=== PATIENT | male | born 1955 | race Caucasian/White ===

== ENCOUNTER 2019-03-30 16:09 | Outpatient (CLI) | payer OTHER, SELFPAY ==
--- NOTE | 2019-03-30 15:00 | DI.RAD_ITS ---
SYMPTOM/DIAGNOSIS: RIGHT KNEE PAIN RIGHT KNEE: Comparison is made with 07 Jan 2017 A right knee prosthesis is noted. There is increased sclerosis of the medial aspect of the proximal tibial metadiaphysis. There is also a question of some lucency adjacent to the tibial portion of the tibial prosthesis which could indicate loosening. A joint effusion is seen. There is some fragmentation at the upper aspect of the patella which appears more prominent when compared with the previous exam. There is also a question of some increased separation of the anterior aspect of the femoral component with increased lucency seen between the femur and prosthesis. IMPRESSION: Joint effusion. Findings questioning loosening of both femoral and tibial components of the total knee prosthesis.
--- NOTE | 2019-03-30 15:34 | DI.RAD_ITS ---
SYMPTOM/DIAGNOSIS: LEFT FOOT PROMINENCE BY 5TH METATARSAL; PAIN LEFT FOOT: There are no prior comparison exams. There is a nonunited fracture of the 5th metatarsal. There is prominent callus formation and medial angulation. There are intertarsal and tarsal metatarsal degenerative changes. There is also deformity of the proximal phalanx of the 5th toe consistent with old healed fracture. IMPRESSION: 5th metatarsal fracture in the mid shaft with ventral angulation. There is adjacent soft tissue swelling. The fracture appears old and shows surrounding callus formation as well as incomplete union.
[2019-03-30 17:10] LABS: Clarity CLOUDY; Source R KNEE
[2019-03-30 17:11] LABS: Nucleated Cells 1793 /MM3 (0-0)
[2019-03-30 17:22] LABS: Mononuclear Cells 44 % (0-0); Polynuclear Cells 56 % (0-0)
== END 2019-03-30 16:29 ==
PROVIDERS: PCP Family Medicine; Visit Provider Student in an Organized Health Care Education/Training Program
DX: M79.672 Pain in left foot (principal); S92.352K Displaced fracture of fifth metatarsal bone, left foot, subsequent encounter for fracture with nonunion; M79.89 Other specified soft tissue disorders; M19.072 Primary osteoarthritis, left ankle and foot; M25.561 Pain in right knee; M25.461 Effusion, right knee; Z96.651 Presence of right artificial knee joint
CPT/HCPCS: 73562; 73630; 87070; 87205; 89051; 89060

== ENCOUNTER 2019-04-11 01:16 | Outpatient (CLI) | payer OTHER, SELFPAY ==
--- NOTE | 2019-04-11 09:28 | DI.CT_ITS ---
SYMPTOM/DIAGNOSIS: EVAL BONE STOCK AND LOOSENING AFTER TKA T84.032A RIGHT KNEE CT: 04/11 CT examination of the knee was performed according to the usual protocol. There is total knee joint replacement in position. There is a joint effusion. There is fragmentation of lateral aspect of the patella as noted on previous radiographs. Patellar implant appears fairly well seated. The tibial implant appears generally well seated with a couple small focal areas of adjacent lucency in the metaphysis measuring up to 2 mm in diameter The tibial component shows circumferential lucency measuring up to 5 mm. There is also significant geographic area of bony lucency involving anterior and medial aspects of the proximal tibia. CONCLUSION: The findings are suggestive of loosening of tibial component of the TKR. Please see above discussion.
--- NOTE | 2019-04-11 09:29 | DI.CT_ITS ---
SYMPTOM/DIAGNOSIS: EVAL FOR BONE UNION AND POSITION. FX 5TH METATARSAL LT FOOT S92.352P CT LEFT FOOT: 04/11 CT examination of the foot was performed utilizing multislice acquisition and multiplanar reconstruction. 5th metatarsal fracture shows bony bridging on its medial and lateral aspects. Incomplete bony bridging present on the dorsal and volar aspects of the healing fracture plane. No other fracture identified. Multiple cystic lesions appear to be present in the bones of the hind foot and fore foot. Mild DJD noted involving tibiotalar talonavicular and subtalar joints as well as the calcaneal cuboid joint. CONCLUSION: Bony bridging but incomplete healing of 5th metatarsal fracture.
== END 2019-04-11 01:36 ==
PROVIDERS: PCP Nurse Practitioner Family; Visit Provider Student in an Organized Health Care Education/Training Program
DX: T84.032A Mechanical loosening of internal right knee prosthetic joint, initial encounter (principal); M25.461 Effusion, right knee; S92.352P Displaced fracture of fifth metatarsal bone, left foot, subsequent encounter for fracture with malunion; M19.072 Primary osteoarthritis, left ankle and foot
CPT/HCPCS: 73700

== ENCOUNTER 2019-08-30 14:09 | Outpatient (CLI) | payer OTHER, SELFPAY ==
--- NOTE | 2019-08-30 15:02 | HPE_ITS ---
Date of service: 08/30/19 Assessment and Plan Assessment and plan (1) 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: Status: Acute Assessment and plan: Revision right total knee replacement. Details of surgery were discussed with patient as well as risks and pertinent anatomy. All questions were answered. Qualifiers: Encounter type: subsequent encounter Qualified Code(s): T84.032D - Mechanical loosening of internal right knee prosthetic joint, subsequent encounter History of Present Illness History of Present Illness Chief Complaint: Right total knee replacement pain Narrative: Joselito comes in today for a preop history and physical for a revision right total knee replacement. He states that he had a right total knee replacement done by Dr. Garcia about 3 years ago, and since then he has had some medial knee pain that radiates down into his reyes. Over time this pain continued to get worse, and actually bothers him when he is weightbearing or on his feet for long periods of time. Also bothers him when he gets up from a seated position to start walking. He eventually was evaluated by x-ray and CT scan which did confirm that he had loose tibial component, and also loosening of the femoral component. Due to this loosening he was worked up for infection and was found to have no infection in the knee, so this was determined to be aseptic loosening of the right total knee replacement. At this time Dr. Garcia offers a revision right total knee replacement, and Joselito is anxious to proceed. Pertinent Surgical Information Patient denies history of hypertension, CVA, HI, angina, asthma, COPD, renal or liver disorders, hepatitis, bleeding disorders, diabetes, immune or thyroid disorders. No complications from anesthesia. He does relate that he had some slight difficulty waking up from surgery and his previous total knee replacement. At that time they were unable to obtain a spinal anesthetic, but he would like to try for spinal anesthetic at this time as well. Review of Systems Constitutional Constitutional: Denies fever(s) ENT Ears, Nose, Mouth, and Throat: Denies dizziness and Denies sore throat Cardiovascular Cardiovascular: Denies chest pain, Denies palpitations and Denies dyspnea Respiratory Respiratory: Denies cough and Denies dyspnea Gastrointestinal Gastrointestinal: Denies abdominal pain, Denies melena, Denies hematochezia, Denies diarrhea, Denies nausea and Denies vomiting Genitourinary Genitourinary: Denies hematuria and Denies dysuria Neurologic Neurologic: Denies dizziness Endocrine Endocrine: Denies palpitations [facility] Medical History (Updated 08/30/19 @ 14:46 by Junior Suh) Allergic rhinitis Arthritis (Acute) Dislocation of right shoulder joint Fracture of metatarsal of left foot, closed (Acute) Unknown date/injury Surgical History (Updated 08/30/19 @ 15:05 by ANANDA Sheridan) History of broken finger (Acute) 1981, SCREWS, WIRES, AND METAL PLATE IN LEFT MIDDLE FINGER Status post total right knee replacement (Acute) Aspiration: 03/30/2019 DOS: December 2015 Social History Smoking/Tobacco Use Status: Never Alcohol Intake: never Drug use: Never Substance use type: does not use Current gender identity: male Do you feel safe at home: Yes Additional Social history: SPOUSE IN ROOM UNABLE TO OBTAIN Meds Home Medications and Allergies Home Medications Medication Instructions Recorded Confirmed Type No Home Medications 01/08/16 08/30/19 History Bone Stimulator #1 ea 04/28/19 08/30/19 Rx Allergies Allergy/AdvReac Type Severity Reaction Status Date / Time No Known Allergies Allergy Unverified 08/30/19 14:33 Exam [facility] Head: normocephalic and atraumatic General nose exam: no nasal discharge Throat: uvula midline and no uvular edema Other: soft palate rises symmetrically, no erythema Eyes Conjunctivae: conjunctivae normal Sclera: sclerae normal Pupils: PERRL Resp Effort & Inspection: normal respiratory effort Auscultation: clear to auscultation bilaterally and no wheezes Cardio Rate: regular rate Rhythm: regular rhythm Heart Sounds: S1 normal, S2 normal and no murmurs GI Palpation: soft, no hepatosplenomegaly and nontender Auscultation: normal bowel sounds
[2019-08-30 15:27] LABS: HCT 40.7 % (40.0-50.0); HGB 14.2 g/dL (13.5-17.5); Mean Corp. HGB Concentration 34.9 g/dL (32.0-36.0); Mean Corpuscular Hemoglobin 32.6 pg (27.0-33.0); Mean Corpuscular Volume 93.6 fL (80-95); Mean Platelet Volume 10.2 fL (8.0-11.0); Platelet Count 280 x1000/uL (130-400); RBC 4.35 m/cumm (4.50-6.00); RBC Distribution Width 12.2 % (11.8-14.1); White Blood Cell Count 8.07 k/cumm (4.4-10.8)
[2019-08-30 16:29] LABS: BUN 24 mg/dL (7-18); CREATININE 0.66 mg/dL (0.70-1.30); Calcium 9.2 mg/dL (8.5-10.1); Chloride 104 mmol/L (98-107); Glucose 89 mg/dL (74-106); Potassium 4.3 mmol/L (3.5-5.1); Sodium 141 mmol/L (136-145)
[2019-08-31 08:04] LABS: C-Reactive Protein 0.79 mg/dL (0.0-0.3)
[2019-08-31 10:53] LABS: Calculated LDL 170 mg/dL; Cholesterol 231 mg/dL (<200); HDL Cholesterol 44 mg/dL (40-60); Triglyceride 86 mg/dL (<150)
== END 2019-08-30 14:29 ==
PROVIDERS: PCP Nurse Practitioner Family; Visit Provider Student in an Organized Health Care Education/Training Program
DX: M25.561 Pain in right knee (principal); Z96.651 Presence of right artificial knee joint; T84.032A Mechanical loosening of internal right knee prosthetic joint, initial encounter; Z01.818 Encounter for other preprocedural examination; Z01.812 Encounter for preprocedural laboratory examination; Z13.220 Encounter for screening for lipoid disorders; Z13.228 Encounter for screening for other metabolic disorders
CPT/HCPCS: 36415; 80048; 80061; 85027; NC; 86140

== ENCOUNTER 2019-09-06 11:00 | Inpatient (IN) | payer OTHER, SELFPAY ==
[2019-08-30 13:22] VITALS: BP 160/80; PULSE 62; RESP 16; O2SAT 93
[2019-08-30 14:11] VITALS: BP 160/80; PULSE 62; RESP 16; O2SAT 93
[2019-09-06] VITALS (10 sets, daily range): BP systolic 96–146; BP diastolic 34–80; PULSE 48–57; RESP 11–19; TEMP 36.3–36.6; O2SAT 94–98
[2019-09-06] MEDS: Celecoxib 200 MG CAP 400 MG PO (11:42)
[2019-09-06] MEDS: Acetaminophen 500 MG TAB 1000 MG PO ×2 (11:43→20:13)
[2019-09-06] MEDS: Gabapentin 300 MG CAP PO ×2 (11:44→22:19)
[2019-09-06] MEDS: Lactated Ringers 1,000 ML 80 ML IV ×3 (12:08→18:43)
[2019-09-06] MEDS: Bupivacaine 0.25% Pres-Free 30 ML VIAL ×2 (12:21→13:31)
[2019-09-06] MEDS: ceFAZolin 2 GM/50 ML BAG IVPB (12:39)
--- NOTE | 2019-09-06 13:24 | SYNOVIUM_PTH ---
PATIENT: Joselito Molina LOC: [id number]#:[id number] AGE/SX: 63/M ROOM: RE09/06/[address]: Haile Garcia MD : [id number] BED: A DIS: 09/07/2019 SPEC #: [id number] RECD: 09/06/19 18:22 STATUS: LEORA REQ #: [id number] FINA: 09/06/19 13:[address]: Haile Garcia DEPT: Surgical Specimen RECD BY: Giulia Cummings ENTERED: 09/06/19 18:23 SP TYPE: SYNOVIUM OTHR DR: Alcira Villatoro Tissues: 1 - SYNOVIUM/IAL Procedures: GROSS AND MICRO LEVEL 4 Comments: [id number]
[2019-09-06] MEDS: Ketorolac 30 MG/ML VIAL (13:31)
[2019-09-06] MEDS: Normal Saline 20 ML VIAL (13:32)
[2019-09-06] MEDS: ceFAZolin 1 GM/50 ML BAG IVPB (18:42)
[2019-09-06] MEDS: Celecoxib 200 MG CAP PO (20:13)
[2019-09-06] MEDS: Aspirin E.C. 81 MG TABEC PO (20:13)
--- NOTE | 2019-09-06 20:20 | W.PM.OP ---
Date of service: 09/06/19 Time of Service: 17:02 Operative Note Operative Note DATE OF PROCEDURE: 09/06/19 PRE-OP DIAGNOSIS: Right Knee Replacement Loosening POST-OP DIAGNOSIS: same PROCEDURE: Right Revision Total Knee Replacement SURGEON: Haile Garcia [employer] ATTENDANT: Stefano Marquez ANESTHESIA: GETA, regional and spinal ESTIMATED BLOOD LOSS: 750 PATHOLOGY: none sent TOURNIQUET TIME: 122 COMPLICATIONS: None Patient was transported to: PACU Patient's condition: stable Implants: 1. Depuy Attune Revision Posterior Stabilized Femoral Component, Size 7 - [id number] cementless stem - 30mm cementless sleeve - 4mm medial, distal augment - 4mm medial and lateral posterior augment 2. Depuy Attune Fixed Platform Tibial Component, Size 6 - [id number] cementless stem - 29mm cementless sleeve 3. Depuy Attune 7x10mm Rotating Platform, Stabilized Plus Poly Indications: I have seen Kendrick in clinic for symptoms of RIGHT knee pain after a knee replacement in December 2015. X-rays showed global loosening of the tibia and femur. He has had increasing pain and with the radiographinc findings, I recommended revision surgery. An infection work up was completed with a mildly elevated CRP but negative Synovasure and 1793 cells with 56% PMN - thus negative. I discussed the technical details of a revision knee replacement. I explained the risks of the procedure to include, but not limited to, bleeding, infection, pain, stiffness, fracture, damage to nerves and vessels, damage to muscles and tendons, loosening, need for repeat procedure, blood clot, cardiopulmonary demise. Despite these risks, Kendrick elected to proceed. Findings: There was notable synovitis throughout the knee. Some areas were inflamed and others were simply hypertrophic with a villonodular appearance. There is no gross purulence but there was significant synovitis throughout. The components of the femur and the tibia were grossly loose and with minimal effort from the underlying cement. Likewise the cement was easily removed and large pieces from both the tibia and the femur. Surrounding the cement there was some loss of bone with a fibrous type material in its place. Multiple cultures were sent from the synovium and swabs within the knee. A large synovial sample was sent to pathology. After thorough irrigation, synovectomy, and remove any fibrous material, revision knee arthroplasty was placed. Procedure Description: Kendrick was greeted in the preoperative holding area where the correct side was identified and marked. The consent was reviewed with the patient and signed. The history and physical was updated. All questions were answered. Preoperative mediacations were administered: Acetaminophen 1000mg, Celebrex 400mg, and Gabapentin 300mg. An adductor canal block was then administered by the anesthesia team in the PACU. Kendrick was taken back to the operating room. A spinal anesthestic was then administered. The patient was placed into the supine position on the operating room table. A nonsterile tourniquet was placed high onto the leg but only used for cementing. Posts were placed for positioning during the procedure. All bony prominences were well padded. Prophylactic antibiotics in the form of cefazolin were administered. 1g of Tranxemic Acid was given intravenously within 30 minutes of incision. The right leg was then prepped with Chloraprep and draped in a standard fashion with impervious stockinette. A second prep with Chloraprep was performed prior to application of Iodine impregnated skin protection. A timeout to confirm correct identity, side and site, procedure, allergies, anesthesia, and medical concerns was performed. With the knee in some flexion, a midline incision was made overlying the knee, extending the previous incision by 2 cm in either direction.. Full thickness skin flaps were raised once the extensor mechanism was encountered. These were raised medially and laterally. Any bleeding was controlled with electrocautery. Once the extensor mechanism was fully exposed, a medial parapatellar arthrotomy was performed in a flexed position. There was significant synovial fluid encountered but no purulence and the fluid was normal in character. All bleeding from the arthrotomy and the geniculate arteries was coagulated. There was large amounts of synovitis seen immediately with some appearing very villonodular. A complete synovectomy was performed starting medial separate the overlying capsule from the synovium. This was inspected in a hole over the medial aspect. This synovium was then sent pathology. The remainder of the synovium within the knee working along the femur, lateral, anteriorly, and later posteriorly, was resected. Multiple synovial samples were sent for culture. The polyethylene was removed. Samples of the film underneath the polyethylene was sent for culture. Excess synovium was removed to allow for mobilization. The parapatellar arthrotomy was continued more proximally to allow more mobilization. The patella was unable to be everted and therefore was simply moved to the side. A subperiosteal peel was performed and this was continued along the entire medial aspect of the tibia until I was able to sublux the tibia forward. The posterior synovium was resected and scars and adhesions over the posterior tibia were released. This was also done for the posterior femur. The femur appeared grossly loose and with a few small taps with the bone tamp, the femoral component was easily removed. No cement came along with the femur. There also appear to be some loosening of the cement. With very minimal effort I was able to remove all the cement from the femur. Little bone came with the cement. There was a fibrous material seen around the cement and underneath it. This is removed with a rondure your. Any cystic areas were debrided with a curette. Attention was then turned to the tibia. Once again, this appeared loose. I placed the osteotome underneath the tibial plate with minimal difficulty and was able to remove it without difficulty. Once again, no cement came with a tibial component. Just like the femur, there was some soft tissue seen around the cement. The majority of the cement was able be removed with minimal effort or difficulty. Once all the cement components removed, using osteotomes and rongeurs, I debrided the tibial surface with a rondure and with a curette. A pulse lavage was then used to clean all the tibia and fibular surfaces. The patella was also inspected and it did not show any signs of loosening. Preparation of the tibia was next. Starting with the intramedullary reamer I began reaming up to a size 14 mm. Using a broach I began broaching for the 29 mm sleeve. An opening reamer was also used. The bone quality, while poor right around the cement, was actually quite good just beyond this and if anything sclerotic down in the metaphysis. The broach was sunk so it was a millimeter below the surface of the tibia. With the broach in position, I uses as a cutting guide was able to cut the tibial surface. There was some focus of bone loss right around the keel. However they were all contained with a nice rim of tibial bone and the broach had excellent fixation. The broach was removed and a trial component was placed. Attention was then turned to the femur. The intramedullary space was reamed with a desulfurizer hand up to size 16 mm. The area was opened up with the reamer for the sleeve. It was then broached to a 30 mm sleeve. The sleeve was left in place in the distal femoral cut was freshened. The size 7 guide was positioned. Flexion gap was established at 10 mm and this helps at rotation. This was also confirmed in extension where 10 mm provided excellent stability. The guide was pinned. There was little bone in the posterior femur and therefore four millimeter augments would be used and the posterior femoral condyles were cut accordingly. The anterior and posterior chamfers were cut and the catheter guide was in place. Due to limited contact over the medial, distal femur plan for a 4 mm augment and then this was cut accordingly. All trial components were placed and trialed. There is excellent stability and good patellar tracking. The trial component removed making sure to maintain rotational alignment between the parts. Aggressive irrigation and debridement was once again performed all the services to make sure no redness soft tissue was left behind. The knee was also irrigated with Irricept chlorhexidine solution. On the back table, the components were assembled. Once they were all assembled the cement was mixed. 2 batches of medium viscosity cement were mixed on the back table. Cement was placed over the tibial tray and the posterior femoral condyles. Cement was then impacted manually into the tibial cut surface trying to keep as much cement as possible out of the canal itself. The tibial component was then impacted in place. During the impaction process the tibial component was not willing to seat. I used a bone tamp to help improve rotation and then continue with impaction getting it down to 1 to 2 mm off of the tibia surface. I excepted this positioning as it was quite close and not worth trying to remove. Cement was then placed on the femoral cut surfaces and impacted manually. The femoral component was impacted and came down on the proper positioning. A size 7 x 10 mm polyethylene was placed and the knee is brought into extension where it stayed for the entire time for cement to cure. While this was setting, the soft tissue the knee was injected with a periarticular cocktail consisting of 50 cc of 0.25% bupivacaine, 20 cc of Exparel, 50 cc of expandable saline, and 30 mg of ketorolac. The tourniquet was then deflated. There is no major bleeding. The knee was taken through range of motion and was stable to varus and valgus stress in both extension and flexion and was able to achieve full extension. The trial polyethylene was then removed and excess cement was resected from within the knee and around the implants. A size 7 x 10 mm rotating platform, stabilized plus tibial implant was then inserted. Once again, the knee was irrigated with normal saline and with the Irrisept chlorhexidine solution. The capsule was then reapproximated with a No. 1 Vicryl at multiple locations. The capsule was finally closed with a No. 2 Stratafix, barbed suture. The tourniquet was then released and the arthrotomy appeared watertight without significant bleeding. The second dosing of 1g TXA was started. Deep tissues were then reapproximated with 0 Vicryl and 2-0 Vicryl. The skin was closed with a running 3-0 Monocryl in a subcuticular fashion. This was reinforced with skin glue. A Mepilex silver dressing was applied along with a [id number] PEG wrap. A CryoCuff was applied. Kendrick was transferred to the hospital bed without difficulty an suffering no apparent complication. The spinal anesthetic was converted to a general anesthetic given the duration of the surgery. He tolerated this well. He has a good prognosis. I will follow the culture and pathology results although initial Gram stain's at the end the case were negative. Physical therapy will start today and without restrictions, weight-bearing as tolerated. Aspirin 81mg BID will be used for DVT prophylaxis.
[2019-09-07] MEDS: ceFAZolin 1 GM/50 ML BAG IVPB ×2 (02:18→10:50)
[2019-09-07 02:20] VITALS: BP 97/55; PULSE 52
[2019-09-07 05:10] VITALS: BP 111/62; PULSE 53; RESP 16; TEMP 36.6; O2SAT 99
[2019-09-07] MEDS: Normal Saline 1,000 ML 1000 ML IV (07:01)
[2019-09-07] MEDS: Normal Saline Flush 10 ML SYR IV (07:17)
[2019-09-07 07:23] VITALS: BP 125/75; PULSE 53; RESP 17; TEMP 36.1; O2SAT 98
[2019-09-07 07:24] LABS: HCT 33.9 % (40.0-50.0); HGB 11.8 g/dL (13.5-17.5); Mean Corp. HGB Concentration 34.8 g/dL (32.0-36.0); Mean Corpuscular Hemoglobin 32.8 pg (27.0-33.0); Mean Corpuscular Volume 94.2 fL (80-95); Mean Platelet Volume 10.7 fL (8.0-11.0); Platelet Count 220 x1000/uL (130-400); RBC Distribution Width 12.1 % (11.8-14.1)
[2019-09-07 07:31] LABS: Anion Gap 8.3 mmol/L (3-11); BUN 17 mg/dL (7-18); CO2 26.7 mmol/L (21.0-32.0); CREATININE 0.74 mg/dL (0.70-1.30); Calcium 8.4 mg/dL (8.5-10.1); Chloride 106 mmol/L (98-107); Glucose 103 mg/dL (74-106); Potassium 4.1 mmol/L (3.5-5.1); Sodium 141 mmol/L (136-145)
[2019-09-07] MEDS: Acetaminophen 500 MG TAB 1000 MG PO (08:22)
[2019-09-07] MEDS: Celecoxib 200 MG CAP PO (08:22)
[2019-09-07] MEDS: Pantoprazole 40 MG TABCR PO (08:23)
[2019-09-07] MEDS: Aspirin E.C. 81 MG TABEC PO (08:23)
--- NOTE | 2019-09-07 10:01 | INITIAL_ITS ---
- If Service Date Differs Date of service: 09/07/19 Time of Service: 10:01 Care Management Initial Assess REASON FOR HOSPITALIZATION:: Right knee replacement loosening. PAST MEDICAL HISTORY/PAST SURGICAL HISTORY:: Medical history: Allergic rhinitis, arthritis, dislocation of right shoulder joint, and fracture of metatarsal of left foot, closed. Surgical history: History of broken finger and status post total right knee replacement. PREVIOUS FUNCTIONAL STATUS/SOCIAL/FAMILY SUPPORTS:: Joselito lives in [place] with his , Nikky. The couple has three adult children; one who lives locally. For the past 16 years, Joselito has worked full-time at [employer] When not at work, Joselito enjoys gardening and outdoor activities such as fishing, etc. Joselito drives and is independent with his ADLs at baseline. CURRENT FUNCTIONAL STATUS:: Joselito is sitting in a chair watching television when CM comes to meet with him. He states he is feeling good and hopes to go home today. He reports he is meeting with physical therapy at some point today and if that goes well, he likely will be discharged home this afternoon. ADVANCE DIRECTIVES:: None on file. Has patient been provided with information about the portal?: Yes Did the patient sign up for the portal?: No (Not interested.) CODE STATUS:: Full Code INSURANCE COVERAGE / FINANCIAL ISSUES:: Health Plans. CURRENT HOME/COMMUNITY SERVICES/EQUIPMENT:: Joselito has a FWW and crutches at home He has no in-home or community services. PRIMARY CARE PHYSICIAN:: ISABELLA Holt ([facility]) POTENTIAL DISCHARGE NEEDS:: Follow up appointments with Dr. Garcia, surgeon, and with primary care physician. PATIENT/FAMILY EDUCATION NEEDS:: Discharge plan, limitations, follow-up plan of care, including Ask Me Three and self-management. ANTICIPATED BARRIERS TO DISCHARGE:: No anticipated barriers at this time. TRANSPORTATION:: His , Nikky, will transport him home via private vehicle when ready. PLAN:: Joselito will be discharged home when medically cleared by provider. Anticipate no new services at time of discharge. Joselito will need outpatient follow-up appointments with Dr. Garcia and his primary care physician. His will transport him home via private vehicle when ready. CM will continue to follow.
--- NOTE | 2019-09-07 10:14 | W.PM.DS.N ---
Date of service: 09/07/19 Time of Service: 10:14 DS: Diagnosis Discharge Diagnosis (1) 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: Status: Acute Discharge Plan Disposition Patient Disposition: HOME Condition: Good Discharge Details Reason For Visit: R TKA LOOSENING Admit Date/Time: 09/06/19 11:00 Admit Provider: Haile Garcia Attending Provider: Haile Garcia Primary Care Provider: Alcira Villatoro Hospital Course Hospital Course: Patient was admitted to the medical/surgical floor following the procedure. It was tolerated well without any notable medical, surgical, or anesthetic complications. Mobilization began postoperatively. The hall catheter was removed and voiding spontaneously. Vitals were stable. Physical therapy worked with the patient and was cleared for discharge home. No acute medical issues. Home Meds and New Rx's Prescriptions: New celecoxib 200 mg capsule 200 mg PO BID PRN (Reason: pain) Qty: 60 RF: 1 aspirin 81 mg tablet,delayed release (DR/EC) 81 mg PO BID Qty: 60 RF: 0 acetaminophen 500 mg tablet 1,000 mg PO Q8H PRN (Reason: pain) Qty: 90 RF: 3 pantoprazole 40 mg tablet,delayed release (DR/EC) 40 mg PO DAILY Qty: 30 RF: 0 gabapentin 300 mg capsule 300 mg PO QHS Qty: 7 RF: 0 oxycodone 5 mg tablet 5 mg PO Q4H Qty: 18 RF: 0 Continued No Home Medications RF: 0 No Action (DME) Bone Stimulator Qty: 1 RF: 0 Discharge Instructions Additional Instructions: Dr. Garcia?s Total Knee Discharge Instructions Activity: The most important activity is to walk. You should try to take short walks a few times a day. It is important that when resting you work on keeping the knee straight. Avoid putting a pillow behind the knee as this will encourage flexion. Work on range of motion exercises as provided by Physical Therapy. - Start outpatient physical therapy within 2 weeks. - You should wear the TAMIKO hose on both legs for 2 weeks. Dressing: Keep the surgical dressing in place for at least one week. After the first week it may be removed and replace with light gauze and tape or nothing. It may get wet after 3 days but avoid soaking the dressing. If it gets wet, just lightly pat dry. Medications: - You should take Tylenol and anti-inflammatory Celebrex as your primary pain control medications - You have been prescribed a stronger pain medication Oxycodone for breakthrough pain, take as needed as prescribed. - You have also been prescribed a stomach acid reduction agent Pantoprozole to help reduce stomach acid and reflux. - You will be taking Aspirin 81mg twice a day for DVT prevention unless instructed otherwise. - If you have constipation you should take Colace or Miralax (both [id number]). It takes most people 3-4 days to have a bowel movement. Follow-up: 2 weeks Stand Alone Forms: Nursing Discharge Form Referrals: Haile Garcia MD [ [facility] STAFF PHYSICIAN] - 09/22/19 7:45 am Activity:: Activity as Tolerated Equipment/Supplies:: Walker Diet:: As Tolerated Discharge Orders Discharge Orders: Discharge Order (Routine); Ordered 09/07/19 Ordered By: Haile Garcia DS: Summary Status at Discharge Functional status at discharge: uses cane/walker Overall status at discharge: patient is progressing back to baseline Mental Status: mental status grossly normal Speech and Movement: speech and movement normal Mood: congruent mood Affect: normal affect Exam Psych Mental Status: mental status grossly normal Speech and Movement: speech and movement normal Mood: congruent mood Affect: normal affect DS: Data Vitals/I&O Vitals and I&O: Vital Signs Temperature 36.1 C L 09/07/19 07:23 Temperature Source Tympanic 09/07/19 07:23 Pulse 53 L 09/07/19 07:23 Pulse Rhythm Regular 09/07/19 00:30 Respiratory Rate 17 09/07/19 07:23 Respiratory Effort 09/07/19 00:30 Respiratory Depth Normal 09/07/19 00:30 Respiratory Pattern Normal 09/07/19 00:30 Blood Pressure 125/75 09/07/19 07:23 Pulse Oximetry 98 09/07/19 07:23 Respiratory End-tidal CO2 37 09/06/19 17:56 Oxygen Delivery Method Nasal Cannula 09/07/19 07:23 Oxygen Flow Rate 1 09/07/19 07:23 Pain Level 2 09/07/19 07:23 Intake & Output 09/06/19 09/06/19 09/07/19 11:59 23:59 11:59 Intake Total 1576 / 1576 896.667 / 896.667 Output Total 1150 / 1150 1775 / 1775 Balance 426 / 426 -878.333 / -878.333 Weight 105.4 kg Intake: IV 1576 / 1576 656.667 / 656.667 Oral 240 / 240 Output: Urine 200 / 200 1775 / 1775 Emesis 200 / 200 Estimated Blood Loss 750 / 750 Other: Urine Color Yellow Yellow Urine Appearance Clear Clear Comment Clamp wasnt clamped on tube, so more was on the floor Emesis Description Mucous Data Completed and Pending Labs on day of discharge: Labs from last 24 hours 09/07/19 09/07/19 06:47 06:47 WBC 9.00 RBC 3.60 L Hgb 11.8 L Hct 33.9 L MCV 94.2 MCH 32.8 MCHC 34.8 RDW 12.1 Plt Count 220 MPV 10.7 Sodium 141 Potassium 4.1 Chloride 106 Carbon Dioxide 26.7 Anion Gap 8.3 BUN 17 Creatinine 0.74 Estimated GFR/1.73 m2 >= 60.00 Glucose 103 Calcium 8.4 L 09/06/19 13:40 Knee - Right Joint Surgical Culture - Pending 09/06/19 13:40 Knee - Right Surgical Culture - Pending 09/06/19 13:30 Knee - Right Surgical Culture - Pending 09/06/19 13:42 Knee - Right Surgical Culture - Pending 09/06/19 13:37 Knee - Right Anaerobic Culture - Pending Preliminary micro results at discharge 09/06/19 13:40 Surgical Culture - Pending Knee - Right Joint 09/06/19 13:37 Surgical Culture - Preliminary Knee - Right 09/06/19 13:40 Surgical Culture - Pending Knee - Right 09/06/19 13:30 Surgical Culture - Pending Knee - Right 09/06/19 13:30 Surgical Culture - Preliminary Knee - Right Joint 09/06/19 13:42 Surgical Culture - Pending Knee - Right 09/06/19 13:37 Anaerobic Culture - Pending [facility] Social History Smoking/Tobacco Use Status: Never Alcohol Intake: never Drug use: Never Substance use type: does not use Current gender identity: male Do you feel safe at home: Yes Additional Social history: SPOUSE IN ROOM UNABLE TO OBTAIN
[2019-09-07 11:41] VITALS: BP 130/65; PULSE 67; RESP 17; TEMP 36.7; O2SAT 98
--- NOTE | 2019-09-07 13:06 | IN_ITS ---
Date of service: 09/07/19 Time of Service: 11:00 PT Notes Visit Reasons: R TKA LOOSENING Physical Therapy Inpatient Initial Evaluation Date: 09/07/2019 Referring Doctor: Haile Garcia M.D. PT Orders: PT CONSULT: S/P ortho surgery Precautions: Fall. Standard. Activity as tolerated. Patient Profile/Admitting Diagnosis: Pt is a 63-year-old male presenting on post-surgical day one, s/p right TKA revision due to loosening of prior TKA in December 2015. PMHX: Medical History (Updated 08/30/19 @ 14:46 by Junior Suh) Allergic rhinitis Arthritis (Acute) Dislocation of right shoulder joint Fracture of metatarsal of left foot, closed (Acute) Unknown date/injury Surgical History (Updated 08/30/19 @ 15:05 by ANANDA Sheridan) History of broken finger (Acute) 1981, SCREWS, WIRES, AND METAL PLATE IN LEFT MIDDLE FINGER Status post total right knee replacement (Acute) Aspiration: 03/30/2019 DOS: December 2015 Social History/Home Situation: Pt lives at home with his in [place]. He reports that there are two steps with no railing onto porch and one step into the home. He reports that his bedroom is upstairs, but prior to surgery brought a day bed to the first floor so he does not have to negotiate stairs in the [facility]. Equipment Owned/DME: two-wheeled walker and single-point cane. Subjective: Pt reports that he is not experiencing pain with rest. Denies headache, chest pain and dizziness. He did report pain on his right ankle which he thinks is from the somewhat tight PEG wraps. Objective: General Observation: IV line in L UE. Mental Status: Alert and oriented x 4 Pain: 0/10 at rest ROM: Right Upper Extremity: Shoulder Flexion WFL. Shoulder abduction WFL. Elbow flexion WFL. Wrist flexion WFL. Opening and closing of hand WFL. Left Upper Extremity: Shoulder Flexion WFL. Shoulder abduction WFL. Elbow flexion WFL. Wrist flexion WFL. Opening and closing of hand WFL. Right Lower Extremity: Hip flexion WFL. Hip abduction WFL. Knee flexion 110 degrees. Knee extension -10 degrees. Ankle dorsiflexion WFL. Ankle plantarflexion WFL. Left Lower Extremity: Hip flexion WFL. Hip abduction WFL. Knee flexion WFL. Ankle dorsiflexion WFL. Ankle plantarflexion WFL. Strength: Right Upper Extremity: Shoulder flexors 5/5. Shoulder abductors 5/5. Elbow flexors 5/5. Elbow extensors 5/5. [facility] Administrator strong. Left Upper Extremity: Shoulder flexors 5/5. Shoulder abductors 5/5. Elbow flexors 5/5. Elbow extensors 5/5. Child Care Center Administrator strong. Right Lower Extremity: Hip flexors 4+/5. Hip abductors 5/5. Knee flexors 3-/5. Knee extensors 3-/5. Ankle dorsiflexors 5/5. Ankle plantarflexors 5/5. Left Lower Extremity: Hip flexors 5/5. Hip abductors 5/5. Knee flexors 3-/5. Knee extensors 3-/5. Ankle dorsiflexors 5/5. Ankle plantarflexors 5/5. Sensation: Intact as to pain and pressure on bilateral lower extremities. Bed Mobility/Transfers: Rolling NT Supine to sit NT Sit to supine NT Sit to stand supervision Stand to sit supervision Bed to chair supervision Chair to bed supervision Gait: Pt was able to ambulate 240 feet +120 feet WBAT using a two-wheeled walker. Step through gait pattern. Supervision of PT and PT student. Complains of pain in right ankle with weightbearing, however, denies pain in right knee. Stairs: Pt was able to ascend and descend 4-inch steps x 3 and 6-inch steps x 3 with bilateral UE support on railings. Step through gait pattern on stairs. He was able to ascend 6-inch steps x 1 and descend 4-inch steps x1 using single point cane. Complained of some pain when descend stairs using step through gait pattern. SBA by PT and PT student. Balance: Static Sitting: Normal Dynamic Sitting: Normal Static Standing: Good Dynamic Standing: Fair Special Tests: Mobility Limitations Standardized Measure [facility]-PAC 6 clicks Basic Mobility Inpatient Short Form: Raw Score: 24 CMS Score: 0% deficit Informed Consent/Education: Patient instructed in purpose of PT consult and plan of care. Assessment: Pt is a -year-old male presenting on post-surgical day one, s/p right TKA revision due to loosening of prior TKA in December 2015. On initial evaluation the pt presented with impairment level findings and functional limitations as listed below. Patient presents with clinical signs and symptoms consistent with current/admitting diagnoses that have resulted to mobility limitations, gait instability, generalized weakness, and impairment of motor control as demonstrated by the following impairment level findings: 1. Decreased strength to R LE hip and knee major muscle groups 2. Impaired standing balance 3. Impaired activity tolerance 4. Limitation of joint range of motion in right knee Impairments are contributing to the following functional limitations: 1. Increased dependence with transfers 2. Inability to safely ambulate without assistive device and physical assistance 3. Increase completion time for mobility ADL performance 4. Increased fall risk 5. Inability to negotiate steps alone safely Patient is assessed as a 90624 moderate complexity based on the following: History: Pt is a -year-old male presenting on post-surgical day one, s/p right TKA revision due to loosening of prior TKA in December 2015. Presents to PT with impairment level findings and functional limitations. Examination: Demonstrable impairment in strength, balance, and range of motion with underlying impairments and functional limitations as documented above Presentation: Evolving Decision Makin moderate complexity Goals: N/A. PT evaluation only. Plan of Care/Treatment Plan: 1-2x/day, 7 days/week x 1 week. Plan of care has been reviewed with the [employer]TER [employer] CAPTAIN providing the service under Physical Therapy direction. Initiate Physical Therapy intervention for strengthening, bed mobility, transfers, gait, stairs, balance training, use of assistive device. DISCHARGE RECOMMENDATIONS: Discharge to home when medically cleared. TREATMENT CODE/TIME: 16344 x 25 minutes beginning at 11:25 A.M. Thank you very much for this referral. Michael Joshi, SPT Doctor of Physical Therapy Student [facility] Supervision provided by Genevieve Moss PT, DPT, CLT [facility] [place], [place]
--- NOTE | 2019-09-07 13:10 | PDOC.CMDIS ---
- If Service Date Differs Date of service: 09/07/19 Time of Service: 13:10 LACE Index Scoring Tool - Questions: Length of Stay (in days): 1 Acuity (Admit via E.D.?): No E.D. Visits: 0 - Answers: Total Score: 1 Risk of Readmission: Low Risk Care Management Discharge Reason for Hospitalization: Right knee replacement loosening. Discharge Plan: Joselito is discharged home. He will follow up with Dr. Garcia, his primary care physician, outpatient physical therapy, and his plan of care as directed, including medication recommendations and activity limitations. Joselito has a FWW at home. His is transporting him home via private vehicle. Patient/Family Education Needs: Nursing will review discharge instructions with Joselito re medications and activity level. Joselito is able to verbalize reason for hospitalization and how to manage care at home.
--- NOTE | 2019-09-07 14:01 | W.NUTCONSULT ---
Date of service: 09/07/19 Time of Service: 14:01 Nutritional Consult ASSESSMENT: 63 year old male admitted for Rt knee replacement. Following regular meal plan with excellent intake. BMI indicates class 2 obesity. Met with Joselito and his and provided my contact information for weight managment. Both interested in weight loss in next year and healthful eating. At nutritional risk in view of BMI. NUTRITIONAL DIAGNOSIS: obesity INTERVENTION: provided contact information for outpatient nutrition counseling MONITORING AND EVALUATION: weight and po intake trends Time Spent in Nutritional Counseling and Treatment: 10 min spent face to face
--- NOTE | 2019-09-07 15:35 | CHAPLAIN ---
Joselito explained that he was here for a re-do of his knee replacement. He thinks he will be discharged later today. I explained my role and offered support.
== END 2019-09-07 14:50 | disposition home or self-care (01) | DRG 468 ==
LOC: PDS 11:00 → MS 18:24
PROVIDERS: Admitting Provider Student in an Organized Health Care Education/Training Program; PCP Nurse Practitioner Family; Visit Provider Student in an Organized Health Care Education/Training Program
PROC: 0SPC0JZ Removal of Synthetic Substitute from Right Knee Joint, Open Approach (ICD-10-PCS; CPT 27487; principal; 2019-09-06 14:15)
DX: T84.032A Mechanical loosening of internal right knee prosthetic joint, initial encounter (principal); T84.84XA Pain due to internal orthopedic prosthetic devices, implants and grafts, initial encounter; M25.561 Pain in right knee; G89.18 Other acute postprocedural pain; M12.261 Villonodular synovitis (pigmented), right knee; M65.861 Other synovitis and tenosynovitis, right lower leg
CPT/HCPCS: 27487; 27334; 36415; 76942; 80048; 85027; 88305; 97162; NC; 87070; 87075; 87205; J0690; J1885

== ENCOUNTER 2019-09-22 08:15 | Outpatient (CLI) | payer OTHER, SELFPAY ==
--- NOTE | 2019-09-22 | DI.RAD_ITS ---
EXAM: XR KNEE RT 1V CLINICAL HISTORY: 1ST POST OP TECHNIQUE: COMPARISON: XR knee RT 3V AP,lat,carolyne from 03/30/2019 FINDINGS: Single lateral view was obtained and shows total knee joint replacement in position. Components appe ar well seated as visualized. IMPRESSION:
--- NOTE | 2019-09-22 | DI.RAD_ITS ---
EXAM: XR STANDING ALIGNMENT CLINICAL HISTORY: 1ST POST OP TECHNIQUE: COMPARISON: BONE LENGTH from 01/23/2016 FINDINGS: AP standing alignment views were obtained. There appear to be mild degenerative changes of both hips . There is a total knee joint replacement in position the right. There are severe degenerative chao ges of the tibiofemoral joints on the left with medial femoral subluxation noted. IMPRESSION:
== END 2019-09-22 08:35 ==
PROVIDERS: PCP Nurse Practitioner Family; Visit Provider Student in an Organized Health Care Education/Training Program
DX: Z96.651 Presence of right artificial knee joint (principal); Z47.1 Aftercare following joint replacement surgery; M16.0 Bilateral primary osteoarthritis of hip; M17.12 Unilateral primary osteoarthritis, left knee
CPT/HCPCS: 73560; 77073

== ENCOUNTER 2019-10-20 08:39 | Outpatient (CLI) | payer OTHER, SELFPAY ==
--- NOTE | 2019-10-20 08:00 | DI.RAD_ITS ---
EXAM: XR KNEE RT 2V AP,LAT INDICATION: f/u R TKA revision with fracture. COMPARISON: XR KNEE RT 1V from 09/22/2019 TECHNIQUE: 2D digital imaging was performed. FINDINGS: There is a fracture at the lateral aspect of the tip of the tibial prosthesis which does not appear c hanged in alignment. Additional lucency is seen at the tibial plateaus adjacent to the prosthesis. The patellae again has a somewhat fragmented appearance. No abnormal lucencies are seen in the s[place] la or distal femur. IMPRESSION: Stable appearance of proximal tibial periprosthetic fracture. DATA REPOSITORY: RADIATION DOSE DELIVERED:
--- NOTE | 2019-10-20 08:00 | DI.RAD_ITS ---
EXAM: XR TIB/FIB RT INDICATION: f/u R TKA fracture. COMPARISON: CT LOWER EXTREMITY RT WO from 04/11/2019 XR KNEE RT 1V from 09/22/2019 XR STANDING ALIGNMENT from 09/22/2019 XR KNEE RT 2V AP,LAT from 10/20/2019 TECHNIQUE: 2D digital imaging was performed. FINDINGS: There is a fracture at the lateral aspect of the proximal tibia near the tip of the tibial component of the knee prosthesis. There is also lucency around the tibial plateau adjacent to the prosthesis. No fractures are seen distally. IMPRESSION: Fracture at the distal aspect of the tibial component appears stable when compared with September 12. DATA REPOSITORY: RADIATION DOSE DELIVERED:
--- NOTE | 2019-10-20 08:30 | DI.RAD_ITS ---
EXAM: XR FOOT LT COMPLETE INDICATION: left foot pain. COMPARISON: XR foot LT complete from 03/30/2019 TECHNIQUE: 2D digital imaging was performed. FINDINGS: An old fracture of the 5th metatarsal is noted. There is no change in alignment. There is callus f ormation residual lucency consistent with incomplete union. Severe degenerative changes are noted in the tarsal and tarsometatarsal joints. There is an old fracture deformity of the 5th proximal phala nx. The bones appear osteoporotic. 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 DATA REPOSITORY: RADIATION DOSE DELIVERED:
== END 2019-10-20 08:59 ==
PROVIDERS: PCP Nurse Practitioner Family; Visit Provider Student in an Organized Health Care Education/Training Program
DX: M79.672 Pain in left foot (principal); M19.072 Primary osteoarthritis, left ankle and foot; M81.0 Age-related osteoporosis without current pathological fracture; S92.355K Nondisplaced fracture of fifth metatarsal bone, left foot, subsequent encounter for fracture with nonunion; T84.032D Mechanical loosening of internal right knee prosthetic joint, subsequent encounter
CPT/HCPCS: 73560; 73590; 73630

== ENCOUNTER 2019-11-17 09:05 | Outpatient (CLI) | payer OTHER, SELFPAY ==
--- NOTE | 2019-11-17 08:45 | DI.RAD_ITS ---
EXAM: XR KNEE RT 2V AP,LAT CLINICAL HISTORY: f/u. TECHNIQUE: 2D digital imaging was performed. COMPARISON: CT LOWER EXTREMITY RT WO from 04/11/2019 XR KNEE RT 1V from 09/22/2019 XR STANDING ALIGNMENT from 09/22/2019 XR KNEE RT 2V AP,LAT from 10/20/2019 FINDINGS: BONES: The fracture at the lateral aspect of the tip of the tibial prosthesis appears unchanged. No new fracture or dislocation is present. No bony destructive lesion is seen. JOINTS: The right total knee replacement appears stable. No joint effusion is seen. SOFT TISSUE: Normal. IMPRESSION: Stable periprosthetic fracture of the proximal tibia. DATA REPOSITORY: RADIATION DOSE DELIVERED:
== END 2019-11-17 09:25 ==
PROVIDERS: PCP Nurse Practitioner Family; Visit Provider Student in an Organized Health Care Education/Training Program
DX: T84.032D Mechanical loosening of internal right knee prosthetic joint, subsequent encounter (principal); Z96.651 Presence of right artificial knee joint
CPT/HCPCS: 73560

== ENCOUNTER 2020-08-27 15:26 | Outpatient (CLI) | payer OTHER, SELFPAY ==
--- NOTE | 2020-08-27 15:00 | DI.RAD_ITS ---
EXAM: XR KNEE RT 2V AP,LAT CLINICAL HISTORY: annual f/u. TECHNIQUE: 2D digital imaging was performed. COMPARISON: CR XR KNEE RT 2V AP,LAT from 11/17/2019 FINDINGS: The previously described fracture in the medial tibial plateau related to the prosthesis appears unch anged. No new fracture evident. The most superior and inferior aspects of the prosthesis components a re not included in the field of view here. IMPRESSION: DATA REPOSITORY: RADIATION DOSE DELIVERED:
== END 2020-08-27 15:46 ==
PROVIDERS: PCP Nurse Practitioner Family; Referring Provider Nurse Practitioner Family; Visit Provider Student in an Organized Health Care Education/Training Program
DX: Z96.651 Presence of right artificial knee joint (principal)
CPT/HCPCS: 73560

== ENCOUNTER 2021-02-04 15:33 | Outpatient (CLI) | payer OTHER, SELFPAY ==
--- NOTE | 2021-02-04 15:15 | DI.RAD_ITS ---
Exam(s) XR KNEE RT 2V AP,LAT EXAM: XR KNEE RT 2V AP,LAT CLINICAL HISTORY: f/u revision R TKA. TECHNIQUE: 2D digital imaging was performed. COMPARISON: CR XR KNEE RT 2V AP,LAT from 08/27/2020 FINDINGS: Stable appearance of the components of the prosthesis. Previously described fracture in the medial tibial plateau appears unchanged. No new fractures ident ified. IMPRESSION: DATA REPOSITORY: RADIATION DOSE DELIVERED:
== END 2021-02-04 15:34 | disposition home or self-care (01) ==
LOC: DIORS 15:34
PROVIDERS: PCP Nurse Practitioner Family; Referring Provider Nurse Practitioner Family; Visit Provider Student in an Organized Health Care Education/Training Program
DX: Z96.651 Presence of right artificial knee joint (principal); T84.032D Mechanical loosening of internal right knee prosthetic joint, subsequent encounter; Z47.1 Aftercare following joint replacement surgery
CPT/HCPCS: 73560

== ENCOUNTER 2022-02-25 13:04 | Outpatient (REF) | payer OTHER, SELFPAY ==
[2022-02-25 15:53] LABS: HCT 40.3 % (40.0-50.0); HGB 14.2 g/dL (13.5-17.5); MCHC 35.2 % (32.0-36.0); MCV 91 fL (80-95); MPV 10.9 fL (8.0-11.0); Platelet Count 264 10^3/uL (130-400); RBC 4.44 10^6/uL (4.36-5.78); RDW 12.2 % (11.8-14.1); RDW-SD 40.8 fL; WBC 7.03 10^3/uL (4.4-10.8)
[2022-02-25 16:10] LABS: Anion Gap 9.7 mmol/L (3-11); BUN 20 mg/dL (7-18); CO2 25.3 mmol/L (21.0-32.0); CREATININE 0.8 mg/dL (0.70-1.30); Calcium 8.9 mg/dL (8.5-10.1); Calculated LDL 125 mg/dL (<100); Chloride 102 mmol/L (98-107); Cholesterol 185 mg/dL (<200); Glucose 104 mg/dL (74-106); HDL Cholesterol 46 mg/dL (40-60); Potassium 4.1 mmol/L (3.5-5.1); Sodium 137 mmol/L (136-145); Triglyceride 74 mg/dL (<150)
[2022-02-25 18:40] LABS: Hemoglobin A1C 5.7 % (<5.7)
== END 2022-02-25 13:05 | disposition home or self-care (01) ==
LOC: NCHCN 13:04
PROVIDERS: PCP Nurse Practitioner Family; Visit Provider Nurse Practitioner Family
DX: Z00.00 Encounter for general adult medical examination without abnormal findings (principal); R73.03 Prediabetes; Z13.220 Encounter for screening for lipoid disorders; Z13.228 Encounter for screening for other metabolic disorders
CPT/HCPCS: 80048; 80061; 85027; 83036

== ENCOUNTER → 2022-06-02 01:25 | Outpatient (CLI) | payer MEDICARE, OTHER, SELFPAY ==
--- NOTE | 2022-06-02 10:00 | DI.MRI_ITS ---
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 IV Contrast: None. COMPARISON: CR XR FOOT LT COMPLETE from 10/20/2019 FINDINGS: BONES/JOINTS: Deformity of the 5th metatarsal related to old fracture. Normal marrow signal. No acu te fracture or contusion pattern. No bone lesions identified. The talar dome is smooth. The ankle mor tise is maintained. There is a small amount of fluid versus small ganglia posterior to the tibiotalar joint. There are severe degenerative changes at the calcaneal cuboid joint with multiple subchondra l cysts on both sides of the joint. LIGAMENTS: The tibiofibular, deltoid and calcaneofibular ligaments are intact. The syndesmosis is unr emarkable. Sinus tarsi is normal. MUSCULOTENDINOUS STRUCTURES: Achilles tendon is intact. The planar fascia is unremarkable. The medial flexor, anterior extensor, and peroneal tendons are intact. SOFT TISSUES: Unremarkable. OTHER FINDINGS: Varus deviation of the metatarsals. IMPRESSION: Degenerative changes, greatest at the calcaneal cuboid joint. Old 5th metatarsal fracture deformity. Varus deviation of the metatarsals. DATA REPOSITORY:
== END ==
PROVIDERS: PCP Nurse Practitioner Family; Visit Provider Nurse Practitioner Family
DX: M79.672 Pain in left foot (principal); M21.6X2 Other acquired deformities of left foot; M19.072 Primary osteoarthritis, left ankle and foot; M89.8X7 Other specified disorders of bone, ankle and foot
CPT/HCPCS: 73718

== ENCOUNTER → 2022-11-06 12:50 | Outpatient (BNVA) | payer MEDICARE, OTHER, SELFPAY | PROVIDERS: PCP Nurse Practitioner Family; Referring Provider Nurse Practitioner Family; Visit Provider Physical Therapy Assistant | DX: Z12.11 Encounter for screening for malignant neoplasm of colon (principal) ==

== ENCOUNTER 2022-11-21 09:01 | Day surgery (SDC) | payer MEDICARE, OTHER, SELFPAY ==
--- NOTE | 2022-11-20 22:06 | PDOC.DSDIS_ITS ---
Date of service: 11/21/22 Time of Service: 12:13 Discharge Plan Disposition Patient Disposition: Home Condition: Good Discharge Details Reason For Visit: colon scope Attending Provider: Carolyn Cordero Primary Care Provider: Alcira Villatoro Home Meds and New Rx's Prescriptions: Continued triamcinolone acetonide 0.1 % cream 1 applic topical BID Discontinued bisacodyl [Dulcolax (bisacodyl)] 5 mg tablet,delayed release (DR/EC) 5 mg PO ONCE Qty: 4 0RF Rx Instructions: Take according to provider's instructions for colonoscopy prep. polyethylene glycol 3350 17 gram/dose powder 17 g PO ONCE Qty: 238 0RF Rx Instructions: To be taken as directed by prescriber's office for colonoscopy prep. Discharge Instructions Additional Instructions: DSU Colonoscopy Post- Op Instructions Instructions for Everyone who is given Anesthesia: For your safety, please do the following for the next twenty-four (24) hours: *Do Not operate a motor vehicle (car, truck, motorcycle, etc.) *Do Not drink alcoholic beverages or use any recreational drugs for the first 24 hours or while taking pain medications. The medications in your body may have a reaction that can be dangerous. *Do Not make any important decisions or sign any important papers. Findings: polyps diverticula-Diverticulosis were noted today- make sure you are moving your bowels on a regular basis and not straining. If you are having difficulties with constipation or straining to move your bowels, I recommend you start a fiber supplement daily, such as Metamucil. Follow up: Repeat colonoscopy in approximately 3 years time. My office will send a letter in 2 to 3 weeks detailing as to what types of polyps they were and when we want to repeat the colonoscopy. 1. No lifting over 20 pounds or strenuous activity for the first 24 hours after your procedure. After 24 hours there are no restrictions on your activity but you may feel fatigued for a few days. 2. After you arrive home you may have a light meal and return to your normal diet as you can tolerate it without feeling sick to your stomach. 3. You may have a bloated, gaseous feeling in your belly (abdomen) after a colonoscopy. Passing gas and belching will help. Walking or lying down on your left side with your knees flexed may relieve the discomfort. Call the office at [phone] (Office) or [phone] (Hospital) right away if you notice any of the following: a.Vomiting of blood or ?coffee ground stools?. b.Rectal bleeding 1Tbsp, blood clots or continuous bleeding. c.Severe belly (abdominal) pain. d.A hard distended belly (abdomen) and an inability to pass gas. 4. Please don?t expect to have a normal BM (bowel movement) for 2-3 days after your procedure. 5. If there are questions regarding the findings of your procedure, please contact your doctor 6. If you are unable to contact your doctor with a problem, contact the hospital at [phone]. 7. Continue all your regular medications unless directed otherwise. I understand the above instructions and have no questions. Signature of Patient or Adult Escort Name of Responsible Adult Escort Signature of Nurse Date/Time Activity:: see above Diet:: see above Discharge Orders Discharge Orders: Discharge Order (Routine); Ordered 11/21/22 Ordered By: Carolyn Cordero DS: Diagnosis Discharge Diagnosis (1) Zumzlzn-Ejgcw-Afwky disease: Status: Acute (2) Adenomatous colon polyp: Status: Acute (3) Diverticula of colon: Status: Acute
--- NOTE | 2022-11-21 07:40 | W.PM.OP ---
Operative Note Operative Note DATE OF PROCEDURE: 11/21/22 PRE-OP DIAGNOSIS: Colorectal cancer screening POST-OP DIAGNOSIS: other (Minor diverticula of the sigmoid colon and polyps) SURGEON: Carolyn Cordero ANESTHESIA TYPE: General:No Airway Refer to Anesthesia Record ESTIMATED BLOOD LOSS: 1 PATHOLOGY: other COMPLICATIONS: None Patient was transported to: same day Patient's condition: stable Procedure Description: After informed consent was obtained the patient was taken to the procedure room and placed in a left decubitous position. Monitors were applied and a time out was done. The patients name, date of , procedure, allergies to medications and metal in their body was reviewed. The patient was then sedated. Once sedated and comfortable a rectal exam was done. External exam was normal. Internal exam revealed a normal sphincter tone and no palpable masses. The scope was then introduced and retrofelexed. No internal hemorrhoids were identified. The scope was then advanced to the cecum w/out difficulty. The TI and appendiceal orifice were identified. The prep was []. The scope was then slowly retracted over [] minutes back into the rectum. Polyps were removed at []. The scope was removed and the patient was woken up and taken back to Same day surgery in stable condition. The patient tolerated the procedure well and there were no immediate complications. Follow up: The patient should follow up in [] years unless they develop changes in bowel habits or other new gastrointestinal complaints.
[2022-11-21 09:30] VITALS: BP 179/95; PULSE 58; RESP 16; TEMP 36.6; O2SAT 97
[2022-11-21] MEDS: Lactated Ringers 1,000 ML 80 ML IV (09:50)
--- NOTE | 2022-11-21 09:53 | W.ANESPRE ---
General Info Date of Service Date Performed: 11/21/22 Height: 5 ft 8 in Weight: 116.3 kg Body Mass Index (BMI): 38.9 Surgical Procedure: Operation Date: 11/21/22 11:20 Proposed Procedure Side Surgeon lynne Cordero, DO Meds Allergies and Home Medications Allergies Allergy/AdvReac Type Severity Reaction Status Date / Time No Known Allergies Allergy Verified 11/21/22 09:43 Home Medication Medication Instructions Recorded triamcinolone acetonide 0.1 % 1 applic topical BID 04/14/22 topical cream Current Visit Medications: Current Medications Generic Name Dose Route Start Last Admin Trade Name Freq PRN Reason Stop Dose Admin Hyoscyamine Sulfate 0.125 mg 11/21/22 09:54 Hyoscyamine 0.125 Mg Sl/Oral/Chew SL DIRECTED PRN Ringer's Solution 1,000 mls @ 80 mls/hr 11/21/22 06:00 11/21/22 09:50 IV 11/21/22 23:59 80 mls/hr INFUSION ALEC Administration IV Miscellaneous Supplies 1 each 11/21/22 06:00 Iv Access IV 11/21/22 23:59 DIRECTED ALEC Ondansetron HCl 4 mg 11/21/22 10:54 Ondansetron 4 Mg/2 Ml Vial IVP Q4H PRN PRN Nausea / Vomiting Sodium Chloride 0 ml 11/21/22 06:00 Normal Saline Flush 10 Ml Syr IV 11/21/22 23:59 PRN PRN Sodium Chloride 0 ml 11/21/22 06:00 Normal Saline 10 Ml Vial IJ 11/21/22 23:59 DIRECTED PRN Sterile Water 0 ml 11/21/22 06:00 Water,Injection,Sterile 10 Ml Vial IJ 11/21/22 23:59 DIRECTED PRN PFSH Active Problems Active Problems: Problem Status Onset Code Fracture of metatarsal of left foot, closed S92.302A 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 T84.032A 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 Screening for colon cancer Z12.11 Prediabetes R73.03 Rash and nonspecific skin eruption R21 Dnumxzj-Atknp-Zdkxd disease G60.0 Medical History Medical History Allergic rhinitis Arthritis Dislocation of right shoulder joint Primary osteoarthritis of right knee (04/20/16) Surgical History Surgical History History of broken finger 1981, SCREWS, WIRES, AND METAL PLATE IN LEFT MIDDLE FINGER History of foot surgery metal in situ Status post total right knee replacement Aspiration: 03/30/2019 DOS: December 2015 Tobacco Smoking/Tobacco Use Status: Never Alcohol Alcohol Intake: never Substance Use Substance use: Never Substance use type: does not use Vital Signs and Lab Results Vital Signs Most Recent Vital Signs in EMR: Most Recent Vital Signs Temp Pulse Resp BP Pulse Ox 36.6 C 58 L 16 179/95 H 97 11/21/22 09:30 11/21/22 09:30 11/21/22 09:30 11/21/22 09:30 11/21/22 09:30 Lab Results Blood Type / Crossmatch: No Data to Display Complete Blood Count: No Data to Display Complete Metabolic Panel: No Data to Display Liver Function Panel: No Data to Display Coagulation Panel: No Data to Display Cardiac Panel: No Data to Display Arterial Blood Gas: No Data to Display Venous Blood Gas: No Data to Display Pancreas Panel: No Data to Display Thyroid Panel: No Data to Display Infectious Disease: No Data to Display Blood Cultures: No Data to Display Toxicology Panel: No Data to Display Anesthesia Assessment and Plan Anesthesia History Personal History: No History of Anesthesia Complications Family History: No Family History of Anesthesia Complications Exercise Tolerance Exercise Tolerance: Metabolic Equivalents>4 Pertinent Negatives Pertinent Negatives: No Symptoms of GERD Cardiac & Pulmonary Exam Cardiac Exam: Normal S1/S2 Heart Sounds Pulmonary Exam: Clear Bilateral Breath Sounds Implantable Cardiac Device Does patient have a Pacemaker or an ICD?: No Airway Exam Known Difficult Airway: No Mallampati Class: 2 Mouth Opening: Normal (> 3cm) Thyromental Distance: Greater than 3 cm Neck Range of Motion: Full ROM Neck Circumference: Normal Teeth Condition: Normal Dentition ASA Classification ASA Score: ASA 2 Emergency Case?: No NPO Status NPO Status: NPO Clears >2 hours, Solids >8 hours Anesthesia Plan Resuscitation Status: Full Code Anesthesia Technique: General Anesthesia Airway Planned: Natural Airway Monitors Used: Standard Monitors
[2022-11-21 10:43] VITALS: BMI 38.9
[2022-11-21 11:47] VITALS: BP 100/69; PULSE 68; RESP 16; TEMP 36.2; O2SAT 95
[2022-11-21 12:15] VITALS: BP 154/76; PULSE 54; RESP 16; TEMP 36.5; O2SAT 96
--- NOTE | 2022-11-21 12:17 | W.ANESPOSTOP ---
Postoperative Evaluation Date, Time and Location Date Performed: 11/21/22 Time Performed: 12:18 Patient Location: Day Surgery Unit Vital Signs Most Recent Imported Vital Signs: Most Recent Vital Signs Temp Pulse Resp BP Pulse Ox 36.2 C L 68 16 100/69 95 11/21/22 11:47 11/21/22 11:47 11/21/22 11:47 11/21/22 11:47 11/21/22 11:47 Pain Score Most Recent Pain Score: Most Recent Pain Score Pain Level 0 11/21/22 11:47 Assessment Mental Status: Awake (Alert & Oriented to Patient Baseline) Airway and Respiratory Function: Patent airway with normal (patient baseline) respiratory exam Cardiovascular Function: Hemodynamically Stable Hydration Status: Adequately Hydrated Nausea & Vomiting: No Nausea or Vomiting Pain: Pt. Denies Any Pain Peripheral Nerve Block: Patient did not receive a nerve block
--- NOTE | 2022-11-21 12:21 | W.COLOREPORT ---
Date of service: 11/21/22 Time of Service: 12:21 Colonoscopy Report Date of procedure: 11/21/22 Pre-op diagnosis general: screening Post-op diagnosis procedure note: other (Polyps and diverticula) Surgeon: Carolyn Cordero Anesthesia Type: General:No Airway Estimated blood loss (mL): 1 Pathology: other Complications: None Disposition: same day Prep: Miralax/Dulcolax Retraction Time: 22 Procedure Description: After informed consent was obtained the patient was taken to the procedure room and placed in a left decubitous position. Monitors were applied and a time out was done. The patients name, date of , procedure, allergies to medications and metal in their body was reviewed. The patient was then sedated. Once sedated and comfortable a rectal exam was done. External exam was normal. Internal exam revealed a normal sphincter tone and no palpable masses. The scope was then introduced and retrofelexed. No internal hemorrhoids were identified. The scope was then advanced to the cecum without difficulty. The TI and appendiceal orifice were identified. The prep was BB PS 2 in all segments for total of 6. The scope was then slowly retracted over 22 minutes back into the rectum. He has minor diverticular disease confined to the sigmoid colon. There is no signs of active bleeding or infection. He had 3 polyps at 80 cm. Two of the polyps were 5 mm flat polyps that are removed with a cold snare. And x1 polyp is a flat, 0.75 cm polyp removed with a cold snare. He had another polyp at 30 cm that is a large 1.5 cm pedunculated polyp that is removed with a hot snare. A clip was placed across the defect. The specimen is retrieved and no bleeding is noted. He had another x1 small, flat 5 mm polyp at 20 cm that is removed with a cold biting forcep. The mucosa is otherwise pink and healthy with a normal vascular pattern. The scope was removed and the patient was woken up and taken back to Same day surgery in stable condition. The patient tolerated the procedure well and there were no immediate complications. Follow up: The patient should follow up in 3 years, path pd, unless they develop changes in bowel habits or other new gastrointestinal complaints.
--- NOTE | 2022-11-21 14:30 | BOWEL_PTH ---
PATIENT: Joselito Molina LOC: [facility] U#:[id number] AGE/SX: 67/M ROOM: RE11/21/[address]: Carolyn Cordero : 1955 BED: DIS: 11/21/2022 SPEC #: [id number] RECD: 11/21/22 16:05 STATUS: LEORA RE #: [id number] FINA: 11/21/22 14:[address]: Carolyn Cordero DEPT: Surgical Specimen RECD BY: Ida Abarca ENTERED: 11/21/22 16:08 SP TYPE: Bowel OTHR DR: Alcira Villatoro Tissues: 1 - BIOPSY BOWEL 2 - BIOPSY BOWEL 3 - BIOPSY BOWEL Procedures: GROSS AND MICRO LEVEL 4 Comments: [id number]
== END 2022-11-21 12:45 | disposition home or self-care (01) ==
PROVIDERS: PCP Nurse Practitioner Family; Visit Provider Surgery
PROC: 0DJD8ZZ Inspection of Lower Intestinal Tract, Via Natural or Artificial Opening Endoscopic (ICD-10-PCS; CPT 45378; principal; 2022-11-21 11:15)
DX: Z12.11 Encounter for screening for malignant neoplasm of colon (principal); K63.5 Polyp of colon; K57.30 Diverticulosis of large intestine without perforation or abscess without bleeding
CPT/HCPCS: 45385; 45380; 88305; J2704

== ENCOUNTER 2023-04-29 11:55 | Outpatient (REF) | payer MEDICARE, OTHER, SELFPAY ==
[2023-04-29 15:40] LABS: HCT 40.9 % (40.0-50.0); MCH 31.3 pg (27.0-33.0); MCHC 34.2 % (32.0-36.0); MCV 92 fL (80-95); MPV 10.8 fL (8.0-11.0); Platelet Count 245 10^3/uL (130-400); RBC 4.47 10^6/uL (4.36-5.78); RDW 12.5 % (11.8-14.1); RDW-SD 41.7 fL; WBC 5.75 10^3/uL (4.4-10.8)
[2023-04-29 16:05] LABS: ALT 35 U/L (16-63); AST 20 U/L (15-37); Albumin 3.6 g/dL (3.4-5.0); Alkaline Phosphatase 159 U/L (46-116); Anion Gap 8.7 mmol/L (3-11); BUN 19 mg/dL (7-18); Bilirubin, Total 0.6 mg/dL (0.2-1.0); CO2 26.3 mmol/L (21.0-32.0); CREATININE 0.9 mg/dL (0.70-1.30); Calcium 8.7 mg/dL (8.5-10.1); Calculated LDL 120 mg/dL (<100); Chloride 104 mmol/L (98-107); Cholesterol 184 mg/dL (<200); Estimated GFR 93.03 (mL/min/1.73m2); Glucose 99 mg/dL (74-106); HDL Cholesterol 41 mg/dL (40-60); Potassium 4.1 mmol/L (3.5-5.1); Sodium 139 mmol/L (136-145); Total Protein 6.9 g/dL (6.4-8.2); Triglyceride 119 mg/dL (<150)
[2023-04-29 16:13] LABS: Hemoglobin A1C 5.8 % (<5.7)
[2023-04-29 22:19] LABS: PSA, Screening 0.5 ng/mL (<=4.5)
== END 2023-04-29 11:56 | disposition home or self-care (01) ==
LOC: NCHCN 11:55
PROVIDERS: PCP Nurse Practitioner Family; Visit Provider Physician Assistant
DX: R73.03 Prediabetes (principal); Z12.5 Encounter for screening for malignant neoplasm of prostate; R79.89 Other specified abnormal findings of blood chemistry
CPT/HCPCS: 80053; 80061; 84153; 85027; 83036

== ENCOUNTER 2024-04-13 23:18 | Outpatient (REF) | payer MEDICARE, OTHER, SELFPAY ==
[2024-04-13 15:41] LABS: Hemoglobin A1C 5.7 % (<5.7)
[2024-04-13 16:26] LABS: ALT 49 U/L (16-63); AST 26 U/L (15-37); Albumin 3.4 g/dL (3.4-5.0); Alkaline Phosphatase 187 U/L (46-116); Anion Gap 9.2 mmol/L (3-11); BUN 21 mg/dL (7-18); Bilirubin, Total 0.55 mg/dL (0.2-1.0); CO2 25.8 mmol/L (21.0-32.0); CREATININE 0.8 mg/dL (0.70-1.30); Calcium 8.5 mg/dL (8.5-10.1); Calculated LDL 98 mg/dL (<100); Chloride 106 mmol/L (98-107); Cholesterol 162 mg/dL (<200); Glucose 105 mg/dL (74-106); HDL Cholesterol 50 mg/dL (40-60); Potassium 4.4 mmol/L (3.5-5.1); Sodium 141 mmol/L (136-145); Total Protein 6.5 g/dL (6.4-8.2); Triglyceride 73 mg/dL (<150)
[2024-04-13 22:24] LABS: PSA, Screening 0.5 ng/mL (<=4.5)
== END 2024-04-13 23:19 | disposition home or self-care (01) ==
LOC: NCHCN 23:18
PROVIDERS: Visit Provider Physician Assistant
DX: I10 Essential (primary) hypertension (principal); R73.03 Prediabetes; Z12.5 Encounter for screening for malignant neoplasm of prostate
CPT/HCPCS: 80053; 80061; 84153; 83036

== ENCOUNTER 2025-04-14 08:04 | Outpatient (REF) | payer MEDICARE, OTHER, SELFPAY ==
[2025-04-14 16:26] LABS: Hemoglobin A1C 5.6 % (<5.7)
[2025-04-14 17:02] LABS: ALT 31 U/L (16-63); AST 22 U/L (15-37); Albumin 3.5 g/dL (3.4-5.0); Alkaline Phosphatase 149 U/L (46-116); Anion Gap 10.2 mmol/L (3-11); BUN 17 mg/dL (7-18); Bilirubin, Total 0.9 mg/dL (0.2-1.0); CO2 25.8 mmol/L (21.0-32.0); Calcium 8.5 mg/dL (8.5-10.1); Calculated LDL 123 mg/dL (<100); Chloride 104 mmol/L (98-107); Cholesterol 175 mg/dL (<200); Estimated GFR 95.21 (mL/min/1.73m2); Glucose 101 mg/dL (74-106); HDL Cholesterol 37 mg/dL (>or=40); Potassium 4.2 mmol/L (3.5-5.1); Sodium 140 mmol/L (136-145); Total Protein 6.5 g/dL (6.4-8.2); Triglyceride 78 mg/dL (<150)
[2025-04-14 22:25] LABS: PSA, Screening 0.6 ng/mL (<=6.5)
== END 2025-04-14 08:05 | disposition home or self-care (01) ==
LOC: NCHCN 08:04
PROVIDERS: PCP Physician Assistant; Visit Provider Physician Assistant
DX: R73.03 Prediabetes (principal); Z12.5 Encounter for screening for malignant neoplasm of prostate
CPT/HCPCS: 80053; 80061; 84153; 83036

== ENCOUNTER 2025-05-31 14:06 | Outpatient (REF) | payer MEDICARE, OTHER, SELFPAY ==
[2025-05-31 14:25] LABS: ESR 44 mm/hr (0-20)
== END 2025-05-31 14:07 | disposition home or self-care (01) ==
LOC: LBN 14:06
PROVIDERS: PCP Physician Assistant; Visit Provider Nurse Practitioner Family
DX: M79.10 Myalgia, unspecified site (principal)
CPT/HCPCS: 85652